=== PATIENT | female | born 1945 | race Caucasian/White ===

== ENCOUNTER → 2017-01-05 | Outpatient (CLI) | payer BC ==
[~2017-01-05] MED LIST: ACTOS 15MG TAB15 MG PO; ASPIR-LOW81 MG PO; CALTRATE-600 W600 MG PO; FISH OIL CONC1000 MG PO; GLUCOPHAGE500 MG PO; HCTZ 25MG25 MG PO; LIPITOR 10MG10 MG PO
== END ==
LOC: MC.RAD 09:32
DX: Z12.31 Encounter for screening mammogram for malignant neoplasm of breast (principal)

== ENCOUNTER → 2018-04-02 | Outpatient (CLI) | payer MEDICARE, OTHER | LOC: MC.RAD 08:15 | DX: Z12.31 Encounter for screening mammogram for malignant neoplasm of breast (principal) ==

== ENCOUNTER → 2019-02-23 | Outpatient (CLI) | payer MEDICARE, OTHER | LOC: COL.RAD 09:55 | DX: M16.11 Unilateral primary osteoarthritis, right hip (principal) | CPT/HCPCS: J3301; Q9967 ==